=== PATIENT | female | born 1950 | race Caucasian/White ===

== ENCOUNTER → 2022-08-14 | Outpatient (CLI) | payer MEDICARE ==
--- NOTE | 2022-08-14 14:26 | Diagnostic Imaging Report ---
INDICATION: Routine screening. Comparison is made with prior mammogram from 05/09/2018. 2-D and 3-D bilateral screening mammography was performed with CAD. Scattered fibroglandular densities are identified bilaterally. The parenchymal pattern is stable. No mass or malignant-appearing microcalcifications are seen. There are scattered benign parenchymal and vascular calcifications bilaterally. Axillae are unremarkable. IMPRESSION: No mammographic features suspicious for malignancy are identified. ACR BI-RADS Category 2: Benign findings. Result letter will be mailed to the patient. Note: At least 10% of breast cancer is not imaged by mammography. BI-RADS Category 2 Dictated by: Dictated on workstation # [id number]
== END ==
LOC: RAD 07:58
PROVIDERS: ATTEND Family Medicine
DX: Z12.31 Encounter for screening mammogram for malignant neoplasm of breast (principal)
CPT/HCPCS: 77063; 77067

== ENCOUNTER → 2023-02-19 | Outpatient (CLI) | payer MEDICARE, OTHER ==
[~2023-02-19] MED LIST: CATHETER FLUSH 10 ML SYR IV PRN; HOLD METFORMIN - RECEIVED CONTRAST 20 ML VIAL IV SCH; IOHEXOL 350 MG/ML 100 ML (OMNIPAQUE 350) VIAL IV ONE; NS 100 ML (IVPB) BAG IV ONE
--- NOTE | 2023-02-19 11:39 | Diagnostic Imaging Report ---
PROCEDURE: CT angiography of the head and CT angiography of the neck with and without contrast. TECHNIQUE: Contiguous noncontrast images were obtained from the skull base through the vertex. After intravenous contrast administration, helical CT angiography of the neck was performed. Source data was reformatted into 3D MIP projections. Delayed post contrast acquisition was also obtained. Auto Exposure Controls were utilized during the CT exam to meet ALARA standards for radiation dose reduction. INDICATION: Carotid disease. I have no priors. FINDINGS: Head: Precontrast and delayed post contrast enhanced CT head performed. Some patchy subcortical white matter hypodensities nonspecific but often associated with chronic small vessel disease. Cerebral cortical volume normal. There is no hydrocephalus. After contrast, no abnormal parenchymal or meningeal enhancement is identified. There were no findings suggestive of an elevation of the intracerebral pressures. There is normal enhancement of the major dural venous sinuses. Orbits, paranasal sinuses, calvarium and mastoids are unremarkable. There is no acute-appearing abnormality. CT angiogram neck: The aortic arch patent, great vessels unremarkable. The cervical vertebral arteries patent, codominant and nonacute. There is extensive calcified and partly soft plaque at the left carotid bulb and bifurcation extending into the proximal left ICA where stenosis was about 50% maximal. The right carotid showed mild calcified plaques at its common and proximal internal segments without hemodynamically significant stenosis. Mid to distal cervical ICA somewhat tortuous on the left but widely patent. CT angiogram head: There are calcified plaques in the intradural right vertebral without significant stenosis, the basilar widely patent and the bilateral machinist apprentice were widely patent. The intracranial ICAs showed non-stenosing calcified plaques at their cavernous segments. The anterior and middle cerebral arterial segments and primary branches patent. No hemodynamically significant intracranial arterial stenosis. No occlusive thrombus. No aneurysm or vascular malformation. IMPRESSION: 1. Left greater than right cervical carotid atherosclerotic plaques did not form hemodynamically significant degrees of stenosis. 2. Intracranial atherosclerotic carotid plaques without stenosis mild intradural right vertebral atherosclerosis without stenosis. 3. No large vessel occlusion, thrombus, aneurysm, vascular malformation or acute appearing arterial pathology at today's study. 4. CT head showed some scattered nonspecific subcortical white matter disease likely small vessel sequelae with no mass, hemorrhage or acute-appearing abnormalities. Dictated by: Dictated on workstation # [id number]
== END ==
LOC: RAD 08:49
PROVIDERS: ATTEND Internal Medicine Cardiovascular Disease
DX: I11.9 Hypertensive heart disease without heart failure (principal); I08.0 Rheumatic disorders of both mitral and aortic valves; I65.23 Occlusion and stenosis of bilateral carotid arteries; R90.82 White matter disease, unspecified
CPT/HCPCS: 70496; 70498; C8929; 93306

== ENCOUNTER → 2023-04-25 | Outpatient (CLI) | payer MEDICARE, OTHER ==
[~2023-04-25] MED LIST changes: -CATHETER FLUSH 10 ML SYR IV PRN; +CATHETER FLUSH 10 ML SYR IVP PRN; -HOLD METFORMIN - RECEIVED CONTRAST 20 ML VIAL IV SCH; -IOHEXOL 350 MG/ML 100 ML (OMNIPAQUE 350) VIAL IV ONE; -NS 100 ML (IVPB) BAG IV ONE
[2023-04-25 09:10] VITALS: BP 202/86
[2023-04-25 09:12] VITALS: BP 200/87
--- NOTE | 2023-04-25 14:57 | Cardiology Stress Test Report ---
Stress Test Report Date of Procedure/Referring: Date of Procedure: Apr 25, 2023 PCP Jennifer Kauffman MD Admitting Physician Admitting Physician: Attending Physician: Elizabeth Naranjo MD Baseline Heart Rate: 72 Baseline Blood Pressure: Blood Pressure Systolic: 200 Blood Pressure Diastolic: 87 Baseline Vitals Vital Signs Date Time Temp Pulse Resp B/P (MAP) Pulse Ox O2 Delivery O2 Flow Rate FiO2 04/25/23 09:10 133 202/86 (124) 04/25/23 09:12 22 Baseline EKG: Baseline EKG: NSR Summary After explaining the procedure to the patient, she signed a consent and then brought to the stress nuclear laboratory. Patient received 0.4 mg Lexiscan for stress test, ECG, heart rate and blood pressure were monitored continuously. Resting and stress dose of radio tracer were injected, imaging was acquired and reviewed in short axis, horizontal long axis and vertical long axis views. TID: 0.91 SSS: 3 SDS: 3 EF: 70 Patient tolerated Lexiscan well No significant ischemia or infarction noted on SPECT images Normal left ventricular size, ejection fraction 70% Copy Copies To 1: JENNIFER KAUFFMAN MD, BASHAR J MD Apr 25, 2023 14:57
== END ==
LOC: CARD 06:52
PROVIDERS: ATTEND Internal Medicine Cardiovascular Disease
DX: R07.9 Chest pain, unspecified (principal)
CPT/HCPCS: 78452; 93017; A9502

== ENCOUNTER 2023-06-20 10:59 | Outpatient (CLI) | payer MEDICARE, OTHER | END 2023-06-20 11:25 | LOC: SLEEP 10:59 | PROVIDERS: ATTEND Internal Medicine Cardiovascular Disease | DX: G47.33 Obstructive sleep apnea (adult) (pediatric) (principal); G47.36 Sleep related hypoventilation in conditions classified elsewhere; I10 Essential (primary) hypertension; R06.83 Snoring | CPT/HCPCS: G0399 ==